=== PATIENT | male | born 1965 | race Caucasian/White ===

== ENCOUNTER 2020-02-23 15:56 | Outpatient (REF) | payer OTHER, SELFPAY ==
[2020-02-23 17:07] LABS: MANUAL DIFF FLAG NO
[2020-02-23 17:14] LABS: Basophils Percent Auto 0.3 % (0-2); Eosinophils Absolute Auto 0.1 X10*3/uL (0.0-0.4); Eosinophils Percent Auto 0.7 % (0-4); Hemoglobin 16.6 g/dl (14.0-18.0); Imm Gran Abs Auto 0.03 X10*3/uL (0.00-0.03); Imm Gran Pct Auto 0.3 % (0.0-0.4); Lymphocytes Absolute Auto 2.8 X10*3/uL (1.2-4.9); Lymphocytes Percent Auto 32.9 % (20-40); Mean Corpuscular HGB Conc 34.6 g/dl (31.0-36.0); Mean Corpuscular Hemoglobin 31.8 pg (27.0-33.0); Mean Platelet Volume 10.1 fL (9.4-12.4); Monocytes Absolute Auto 0.6 X10*3/uL (0.1-1.2); Monocytes Percent Auto 6.6 % (2-11); Neutrophils Absolute Auto 5.1 X10*3/uL (2.0-8.3); Neutrophils Percent Auto 59.2 % (45-73); Platelet Count 274 X10*3/uL (160-400); Red Blood Count 5.22 X10*6/uL (4.60-5.80); Red Cell Distribution Width 12.1 % (11.0-16.0); White Blood Count 8.6 X10*3/uL (4.8-10.8)
[2020-02-23 17:38] LABS: C Reactive Protein 0.11 mg/dL (< or = 0.50)
[2020-02-23 18:20] LABS: Erythrocyte Sedimentation Rate 1 MM/HR (0-15)
== END 2020-02-23 15:57 | disposition home or self-care (01) ==
LOC: HO.LAB 15:56
PROVIDERS: Visit Provider Internal Medicine Infectious Disease
DX: T84.51XA Infection and inflammatory reaction due to internal right hip prosthesis, initial encounter (principal)
CPT/HCPCS: 36415; 85025; 85652; 86140

== ENCOUNTER 2021-04-30 12:21 | Outpatient (REF) | payer OTHER, SELFPAY ==
[2021-04-30 12:59] LABS: MANUAL DIFF FLAG NO
[2021-04-30 13:16] LABS: Basophils Percent Auto 0.3 % (0-2); Eosinophils Absolute Auto 0.1 X10*3/uL (0.0-0.4); Eosinophils Percent Auto 0.8 % (0-4); Hematocrit 47.2 % (42.0-52.0); Hemoglobin 16.3 g/dl (14.0-18.0); Imm Gran Abs Auto 0.02 X10*3/uL (0.00-0.03); Imm Gran Pct Auto 0.2 % (0.0-0.4); Lymphocytes Absolute Auto 4.7 X10*3/uL (1.2-4.9); Lymphocytes Percent Auto 53.8 % (20-40); Mean Corpuscular HGB Conc 34.5 g/dl (31.0-36.0); Mean Corpuscular Hemoglobin 32.1 pg (27.0-33.0); Mean Corpuscular Volume 93.1 fL (80.0-98.0); Mean Platelet Volume 9.8 fL (9.4-12.4); Monocytes Absolute Auto 0.5 X10*3/uL (0.1-1.2); Monocytes Percent Auto 5.2 % (2-11); Neutrophils Absolute Auto 3.4 x10*3/uL (2.0-8.3); Neutrophils Percent Auto 39.7 % (45-73); Platelet Count 220 X10*3/uL (160-400); Red Blood Count 5.07 X10*6/uL (4.60-5.80); Red Cell Distribution Width 12.6 % (11.0-16.0); White Blood Count 8.7 X10*3/uL (4.8-10.8)
[2021-04-30 13:34] LABS: C Reactive Protein 0.13 mg/dL (< or = 0.50)
[2021-04-30 13:52] LABS: Erythrocyte Sedimentation Rate 3 MM/HR (0-15)
== END 2021-04-30 12:22 | disposition home or self-care (01) ==
LOC: HO.LAB 12:21
PROVIDERS: PCP Nurse Practitioner Family; Visit Provider Internal Medicine Infectious Disease
DX: T84.51XA Infection and inflammatory reaction due to internal right hip prosthesis, initial encounter (principal)
CPT/HCPCS: 36415; 85025; 85652; 86140

== ENCOUNTER 2023-01-23 14:29 | Outpatient (AMB) | payer OTHER, SELFPAY ==
--- NOTE | 2023-01-23 14:35 | MHC.PC.OV ---
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 Care / PE Request Allergies No Known Allergies [No Known Allergies*] Allergy (Unverified 01/23/23 14:39) Medication List - Last Reconciled 01/23/23 by DIAZ Hendrix celecoxib 200 mg PO DAILY cephalexin 500 mg PO BID omeprazole 40 mg PO DAILY 30 days Tobacco use date assessed: 01/23/23 Dental Screening Dental Screen Date: 01/23/23 Did you have a dental visit in the last 12 months?: Yes Did you have a dental problem in the last 6 months where you did not have access to dental care?: No Was dental information given to patient?: Patient has dentist HPI Pipe Fitter Soft Copper re-establish Care / PE Request HPI Details Pt is here for a PE. Will order labs. Colon screen is up to date. Due for PSA, will order. Denies dribbling with urination, weak stream, and frequent nocturia. Pt follows up with ID yearly. Pt's blood pressure is elevated today. Will start losartan-hydrochlorothiazide 50-12.5mg (will have pt take half a tab for the first week and then go to a whole tab). Will have pt monitor his blood pressure at home and drop off readings. Denies chest pain, shortness of breath, headache, dizziness, and blurred vision. [facility] Medical History (Updated 01/23/23 @ 15:08 by DIAZ Hendrix) Left retinal detachment HTN (hypertension) Cervical disc herniation Anosmia Vitamin D deficiency Osteoarthritis Actinic keratitis Surgical History (Updated 01/23/23 @ 14:42 by DIAZ Hendrix) H/O repair of left rotator cuff History of bilateral hip replacements Social History Housing: House Patient Tobacco Use Status: Never used Tobacco e-Cigarette/Vaping Use: Never Used Second Hand Smoke Exposure: No service: No Current occupational status: employed Current occupation: [employer] Current occupational exposures/hazards: Yes Cognitive needs: No Hearing needs: No Vision needs: No Questionnaire PHQ-9 Over the last 2 weeks, how often have you been bothered by any of the following problems? 1. Little interest or pleasure in doing things: not at all 2. Feeling down, depressed, or hopeless: not at all 3. Trouble falling or staying asleep, or sleeping too much: more than half the days 4. Feeling tired or having little energy: several days 5. Poor appetite or overeating: not at all 6. Feeling bad about yourself - or that you are a failure or have let yourself or your family down: not at all 7. Trouble concentrating on things, such as reading the newspaper or watching television: not at all 8. Moving or speaking so slowly that other people could have noticed. Or the opposite - being so fidgety or restless that you have been moving around a lot more than usual: not at all 9. Thoughts that you would be better off or of hurting yourself in some way: not at all Total score: 3 Source: Developed by Drs. Jose F Ji, Liz Baum, Kg Charles and colleagues, with an educational froy from [employer]. Thrive Questionnaire Date Thrive assessed: 01/23/23 I am a: Patient What is your living situation today?: I have a steady place to live Within the past 12 months, did the food you bought not last and you didn't have the money to get more?: Never true Within the past 12 months, did you worry whether your food would run out before you got money to buy more?: Never true Do you have trouble paying for medicines?: No Do you have trouble getting transportation to medical appointments?: No Do you have trouble paying your heating and electricity bill?: No Do you have trouble taking care of your child, family member or friend?: No Do you have trouble with day-to-day activities such as bathing, preparing meals, shopping, managing finances, etc.?: No Are you currently unemployed and looking for a job?: No Are you interested in more education?: No AUDIT C Alcohol Use Questionnaire (AUDIT-C) 1. How often do you have a drink containing alcohol?: 2-4 times a month 2. How many drinks containing alcohol do you have on a typical day when you are drinking?: 5 or 6 3. How often do you have six or more drinks on one occasion?: Weekly Total Score: 7 DEMETRIO-7 AMB Questionnaire DEMETRIO-7 Date DEMETRIO - 7 assessed: 01/23/23 Feeling nervous, anxious, or on edge: 0 = Not at all Not being able to stop or control worryin = Not at all Worrying too much about different things: 1 = Several days Trouble relaxin = Several days Being so restless that it is hard to sit still: 1 = Several days Becoming easily annoyed or irritable: 0 = Not at all Feeling afraid as if something awful might happen: 0 = Not at all Total DEMETRIO-7 score (0-4 normal; 5-9 mild; 10-14 moderate; 15-21 severe): 3 Source: Developed by Drs. Jose F Ji, Liz Baum, Kg Charles and colleagues, with an educational froy from [employer]. Review of Systems Const Denies chills and Denies fever(s) Eyes Denies blurry vision ENT Denies vertigo, Denies dizziness and Denies sore throat Card Denies chest pain at rest, Denies chest pain with activity, Denies diaphoresis, Denies dyspnea and Denies dyspnea on exertion Resp Denies cough, Denies dyspnea, Denies dyspnea on exertion and Denies wheezing GI Denies abdominal pain, Denies melena, Denies hematochezia, Denies constipation, Denies diarrhea and Denies loose stools Denies hematuria Musc Denies numbness and Denies tingling Skin/Breast Denies lesions Neuro Denies vertigo, Denies dizziness, Denies numbness and Denies tingling Psych Denies anxiety, Denies depression, Denies homicidal ideation, Denies suicidal ideation and Denies other (substance abuse) Aller/Immun Denies wheezing Physical exam (Primary Care) Vital Signs: Last Vital Signs Pulse 75 01/23/23 14:37 BP 180/100 H 01/23/23 14:37 Pulse Ox 98 01/23/23 14:37 Oxygen Delivery Method Room Air 01/23/23 14:37 BMI result Body Mass Index 26.8 Tobacco/Smoking Status: Tobacco use Status Tobacco use date assessed 01/23/23 01/23/23 14:44 Patient Tobacco Use Status Never used Tobacco 01/23/23 14:44 e-Cigarette/Vaping Use Never Used 01/23/23 14:44 Const General: cooperative Nutritional Appearance: well nourished Orientation/consciousness: patient oriented x3 HENMT Head: Yes normal to inspection, Yes normocephalic and Yes atraumatic Ears: TM's normal bilaterally Eyes General: appearance normal, both eyes and all related structures Alignment and Position: alignment normal and position normal Neck Neck: Yes normal visual inspection and Yes no lymphadenopathy Thyroid: Thyroid normal Resp Effort & Inspection: normal respiratory effort Auscultation: clear to auscultation bilaterally Cardio Rate: regular rate Rhythm: regular rhythm Heart sounds: S1 normal heart sound present, S2 normal heart sound present and no murmurs GI Palpation (GI): Soft to palpation and nontender Auscultation: normal bowel sounds Male General Exam: Yes normal external exam Penis: normal penis Scrotum: scrotum normal, testes descended bilaterally and no inguinal hernias Testes: no testicular mass Skin Rashes: no rashes Neuro General: patient oriented x3, moves all extremities, no focal motor deficits and deep tendon reflexes 2+ bilaterally Romberg Test: Negative Psych Appearance: grossly normal Mental Status: mental status grossly normal Speech and movement: Normal speech and movement present Affect: normal affect Attitude: cooperative Thought process: Normal thought process present Thought content: Normal thought content present Insight: Good insight present (Psych) Judgement: Good judgement present (Psych) Assessment and Plan Assessment & Plan (1) Physical exam: Code(s): Z00.00 - Encounter for general adult medical examination without abnormal findings Plan: Labs ordered (2) Screening for prostate cancer: Code(s): Z12.5 - Encounter for screening for malignant neoplasm of prostate Plan: PSA ordered Plan The patient agreed to the use of a medical apparatus model maker for this encounter. Scribed for DIAZ Self by Cyn Rebolledo medical apparatus model maker, on 01/23/2023 at 14:50 EST Orders: Orders Complete Blood Count Auto Diff Today Z00.00 - Encounter for general adult medical examination without abnormal findings Comprehensive [place]. Panel Fast Today Z00.00 - Encounter for general adult medical examination without abnormal findings TSH reflex Free T4 Today Z00.00 - Encounter for general adult medical examination without abnormal findings UA CC w/rflx Micro + Cult Today Z00.00 - Encounter for general adult medical examination without abnormal findings Lipid Panel Today Z00.00 - Encounter for general adult medical examination without abnormal findings Prostate Specific Antigen Scr Today Z00.00 - Encounter for general adult medical examination without abnormal findings, Z12.5 - Encounter for screening for malignant neoplasm of prostate Medications: New losartan-hydrochlorothiazide 50-12.5 mg 1 tab PO DAILY 90 tabs 0RF Coding Level of Care Code New Pt Prev Care 40-64y(25308) Diagnoses Physical exam Z00.00 Screening for prostate cancer Z12.5
[2023-01-23 14:37] VITALS: BP 180/100; PULSE 75; O2SAT 98; BMI 26.8
== END 2023-01-23 15:55 | disposition home or self-care (01) ==
PROVIDERS: PCP Nurse Practitioner Family; Visit Provider Nurse Practitioner Family
DX: Z00.00 Encounter for general adult medical examination without abnormal findings (principal); Z12.5 Encounter for screening for malignant neoplasm of prostate
CPT/HCPCS: 99386

== ENCOUNTER 2023-02-28 12:51 | Outpatient (REF) | payer OTHER, SELFPAY ==
[2023-02-28 16:19] LABS: Hematocrit 48.8 % (42.0-52.0); Hemoglobin 16.3 g/dl (14.0-18.0); Mean Corpuscular HGB Conc 33.4 g/dl (31.0-36.0); Mean Corpuscular Volume 95.7 fL (80.0-98.0); Mean Platelet Volume 10.4 fL (9.4-12.4); Platelet Count 227 X10*3/uL (160-400); Red Cell Distribution Width 12.1 % (11.0-16.0); White Blood Count 13.7 X10*3/uL (4.8-10.8)
[2023-02-28 16:34] LABS: Alanine Aminotransferase 32 U/L (0-40); Albumin Level 4.7 g/dL (3.5-5.0); Alkaline Phosphatase 63 U/L (39-117); Anion Gap 13 (12-20); Aspartate Amino Transferase 27 U/L (5-37); Bilirubin Total 0.8 mg/dL (0.0-1.0); Blood Urea Nitrogen 18 mg/dL (9-16); Calcium 9.6 mg/dL (8.4-10.2); Carbon Dioxide 31 mmol/L (22-29); Chloride 104 mmol/L (96-108); Cholesterol 208 mg/dL (<200); Estimated Glomerular Filt Rate > 60; Glucose Fasting 98 mg/dL (60-99); HDL Cholesterol 58 mg/dL (>40); LDL Cholesterol Calculated 134 mg/dL (<100); Potassium 4.7 mmol/L (3.3-5.1); Sodium 143 mmol/L (135-145); Total Protein 7.3 g/dL (6.5-8.0); Triglycerides 80 mg/dL (<150)
[2023-02-28 16:47] LABS: Prostate Specific Antigen Scr 1.02 ng/mL (<0.05-4.0)
[2023-02-28 16:49] LABS: Atypical Lymph Absolute Manual 0.1 x10*3/uL; Atypical Lymphs Percent Manual 1 % (0-6); Lymphocytes Absolute Manual 4.5 X10*3/uL (1.2-4.9); Lymphocytes Percent Manual 33 % (20-40); Monocytes Absolute Manual 0.7 X10*3/uL (0.1-1.2); Monocytes Percent Manual 5 % (2-11); Neutrophils Percent Manual 61 % (45-73); Platelet Estimate NORMAL (NORMAL); Platelet Morphology Comment NORMAL; RBC Morphology NOTED; Smudge Cells PRESENT
[2023-02-28 16:50] LABS: Neutrophils Absolute Manual 8.4 X10*3/uL (2.0-8.3)
[2023-02-28 16:53] LABS: TSH reflex Free T4 0.79 uIU/mL (0.32-4.0)
== END 2023-02-28 12:52 | disposition home or self-care (01) ==
LOC: HO.HMGCLDS 12:51
PROVIDERS: PCP Nurse Practitioner Family; Visit Provider Nurse Practitioner Family
DX: Z00.00 Encounter for general adult medical examination without abnormal findings (principal); Z12.5 Encounter for screening for malignant neoplasm of prostate; D72.829 Elevated white blood cell count, unspecified; Z13.29 Encounter for screening for other suspected endocrine disorder; Z13.220 Encounter for screening for lipoid disorders
CPT/HCPCS: 36415; 80053; 80061; 84153; 84443; 85007; 85027

== ENCOUNTER 2023-03-04 10:50 | Outpatient (REF) | payer OTHER, SELFPAY ==
[2023-03-04 16:00] LABS: Appearance Urine Clear; Color Urine Yellow; Glucose Urine UA Negative (Negative); Leukocyte Esterase Urine Negative (Negative); Nitrite Urine Negative (Negative); Specific Gravity - Urine 1.015 (1.005-1.025); Urine Blood Negative (Negative); Urine Ketones Negative (Negative); Urine Protein Negative (Neg-Trace)
== END 2023-03-04 10:51 | disposition home or self-care (01) ==
LOC: HO.HMGCLNP 10:50
PROVIDERS: PCP Nurse Practitioner Family; Visit Provider Nurse Practitioner Family
DX: Z00.00 Encounter for general adult medical examination without abnormal findings (principal)
CPT/HCPCS: 81003

== ENCOUNTER 2023-03-20 12:44 | Outpatient (REF) | payer OTHER, SELFPAY ==
[2023-03-20 16:23] LABS: Basophils Percent Auto 0.3 % (0-2); Eosinophils Absolute Auto 0.1 X10*3/uL (0.0-0.4); Eosinophils Percent Auto 0.3 % (0-4); Hematocrit 46.3 % (42.0-52.0); Hemoglobin 15.9 g/dl (14.0-18.0); Imm Gran Abs Auto 0.03 X10*3/uL (0.00-0.03); Imm Gran Pct Auto 0.2 % (0.0-0.4); Lymphocytes Percent Auto 74.7 % (20-40); MANUAL DIFF FLAG SCAN; Mean Corpuscular HGB Conc 34.3 g/dl (31.0-36.0); Mean Corpuscular Hemoglobin 32.1 pg (27.0-33.0); Mean Corpuscular Volume 93.3 fL (80.0-98.0); Mean Platelet Volume 10.1 fL (9.4-12.4); Monocytes Absolute Auto 0.5 X10*3/uL (0.1-1.2); Monocytes Percent Auto 2.9 % (2-11); Neutrophils Absolute Auto 3.4 x10*3/uL (2.0-8.3); Neutrophils Percent Auto 21.6 % (45-73); Platelet Count 235 X10*3/uL (160-400); Red Blood Count 4.96 X10*6/uL (4.60-5.80); Red Cell Distribution Width 12.3 % (11.0-16.0); SCAN SMEAR FLAG 1; White Blood Count 15.7 X10*3/uL (4.8-10.8)
[2023-03-20 16:26] LABS: Lymphocytes Absolute Auto 11.7 X10*3/uL (1.2-4.9)
[2023-03-20 17:08] LABS: SLIDE REVIEW VERIFIED
== END 2023-03-20 12:45 | disposition home or self-care (01) ==
LOC: HO.HMGCLDS 12:44
PROVIDERS: PCP Nurse Practitioner Family; Visit Provider Nurse Practitioner Family
DX: Z00.00 Encounter for general adult medical examination without abnormal findings (principal)
CPT/HCPCS: 36415; 85025

== ENCOUNTER → 2023-03-24 15:09 | Outpatient (BNVA) | payer OTHER, SELFPAY | PROVIDERS: PCP Nurse Practitioner Family; Visit Provider Physician Assistant Medical | DX: S43.401A Unspecified sprain of right shoulder joint, initial encounter (principal); X50.0XXA Overexertion from strenuous movement or load, initial encounter | CPT/HCPCS: 99203 ==

== ENCOUNTER → 2023-03-26 14:27 | Outpatient (BNV) | payer OTHER, SELFPAY | PROVIDERS: Visit Provider Internal Medicine | DX: D72.829 Elevated white blood cell count, unspecified (principal) | CPT/HCPCS: 99204; 99213; 99214 ==

== ENCOUNTER 2023-04-15 19:40 | Outpatient (REF) | payer OTHER, SELFPAY | END 2023-04-15 19:41 | disposition home or self-care (01) | LOC: HO.MRI 19:40 | PROVIDERS: Visit Provider Internal Medicine | DX: M25.511 Pain in right shoulder (principal) | CPT/HCPCS: 73221 ==

== ENCOUNTER → 2023-04-18 10:03 | Outpatient (BNVA) | payer OTHER, SELFPAY | PROVIDERS: PCP Nurse Practitioner Family; Visit Provider Physician Assistant Medical | DX: M24.011 Loose body in right shoulder (principal) | CPT/HCPCS: 99214 ==

== ENCOUNTER 2023-07-02 15:34 | Outpatient (AMB) | payer OTHER, SELFPAY ==
[2023-07-02 15:36] VITALS: BP 150/92; PULSE 72; O2SAT 98; BMI 28.2
--- NOTE | 2023-07-02 15:36 | A.OFFPC_ITS ---
Vital Signs 07/02/23 15:36 Height 6 ft 1 in Weight 214 lb BMI 28.2 BP 150/92 H Blood Pressure Location Lt brachial Position Sitting Pulse 72 Pulse Source Pulse Oximeter Pulse Oximetry (%) 98 Oxygen Delivery Method Room Air Intake Visit Reasons: follow up Intake Note: pt is here for follow up, htn Allergies No Known Allergies [No Known Allergies*] Allergy (Verified 07/02/23 17:23) Medication List - Last Reconciled 07/02/23 by Mahesh Ann [facility] amlodipine 2.5 mg PO DAILY 90 days celecoxib 200 mg PO DAILY losartan-hydrochlorothiazide 50-12.5 mg 1 tab PO DAILY omeprazole 40 mg PO DAILY 30 days Tobacco use date assessed: 07/02/23 Dental Screening Dental Screen Date: 07/02/23 Did you have a dental visit in the last 12 months?: Yes Did you have a dental problem in the last 6 months where you did not have access to dental care?: No Was dental information given to patient?: Patient has dentist HPI follow up HPI Details HTN: Blood pressure is managed with losartan-hydrochlorothiazide 50- 12.5mg. Blood pressure is elevated today. Pt used to monitor his BP at home and reports that it fluctuates. Will add amlodipine 2.5mg. Denies chest pain, shortness of breath, headache, dizziness, and blurred vision. Pt is seeing hematology/oncology due to chronic lymphocytic leukemia. Pt reports doing well. [facility] Medical History (Updated 07/02/23 @ 16:04 by KRANTHI HendrixGERRI) CLL (chronic lymphocytic leukemia) Left retinal detachment HTN (hypertension) Cervical disc herniation Anosmia Vitamin D deficiency Osteoarthritis Actinic keratitis Surgical History Status post lumbar microdiscectomy H/O repair of left rotator cuff History of bilateral hip replacements Family History Father Bladder cancer Mother Lung cancer Sister Melanoma Social History Household Members: Spouse and Children Housing: House Patient Tobacco Use Status: Never used Tobacco e-Cigarette/Vaping Use: Never Used Second Hand Smoke Exposure: No Current occupational status: employed Current occupation: [employer] Current occupational exposures/hazards: Yes Cognitive needs: No Hearing needs: No Vision needs: No Questionnaire Thrive Questionnaire Date Thrive assessed: 01/23/23 DEMETRIO-7 AMB Questionnaire DEMETRIO-7 Date DEMETRIO - 7 assessed: 01/23/23 Source: Developed by Drs. Jose F Ji, Liz Baum, Kg Charles and colleagues, with an educational froy from [employer]. Review of Systems Const Reports as per HPI Physical exam (Primary Care) Vital Signs: Last Vital Signs Pulse 72 07/02/23 15:36 BP 150/92 H 07/02/23 15:36 Pulse Ox 98 07/02/23 15:36 Oxygen Delivery Method Room Air 07/02/23 15:36 BMI result Body Mass Index 28.2 Tobacco/Smoking Status: Tobacco use Status Tobacco use date assessed 07/02/23 07/02/23 15:38 Patient Tobacco Use Status Never used Tobacco 07/02/23 15:38 e-Cigarette/Vaping Use Never Used 07/02/23 15:38 Thrive Assessment: Date of Thrive Assessment Date Thrive assessed 01/23/23 07/02/23 15:38 Const General: cooperative Orientation/consciousness: patient oriented x3 Resp Effort & Inspection: normal respiratory effort Auscultation: clear to auscultation bilaterally Cardio Rate: regular rate Rhythm: regular rhythm Heart sounds: S1 normal heart sound present and S2 normal heart sound present Neuro General: patient oriented x3 Extrem Right lower extremity: no edema Left lower extremity: no edema Psych Appearance: grossly normal Mental Status: mental status grossly normal Speech and movement: Normal speech and movement present Affect: normal affect Attitude: cooperative Thought process: Normal thought process present Thought content: Normal thought content present Insight: Good insight present (Psych) Judgement: Good judgement present (Psych) Assessment and Plan Assessment & Plan (1) HTN (hypertension): Code(s): I10 - Essential (primary) hypertension Plan: added amlodipine, labs ordered Plan The patient agreed to the use of a medical center manager for this encounter. Scribed for DIAZ Self by Cyn Rebolledo medical center manager, on 07/02/2023 at 15:50 EST. Orders: Orders Complete Blood Count Auto Diff Today I10 - Essential (primary) hypertension Lipid Panel Today I10 - Essential (primary) hypertension UA CC w/rflx Micro + Cult Today I10 - Essential (primary) hypertension Comprehensive [place]. Panel Fast Today I10 - Essential (primary) hypertension TSH reflex Free T4 Today I10 - Essential (primary) hypertension Medications: New amlodipine 2.5 mg PO DAILY 90 tabs 0RF 90 days Coding Level of Care Code Est Pt Level 3 (54363) Diagnoses HTN (hypertension) I10
== END 2023-07-02 16:35 | disposition home or self-care (01) ==
PROVIDERS: PCP Nurse Practitioner Family; Visit Provider Nurse Practitioner Family
DX: I10 Essential (primary) hypertension (principal)
CPT/HCPCS: 99213

== ENCOUNTER 2023-08-12 14:34 | Outpatient (REF) | payer OTHER, SELFPAY ==
[2023-08-12 14:57] LABS: MANUAL DIFF FLAG NO
[2023-08-12 15:47] LABS: Basophils Percent Auto 0.4 % (0-2); Eosinophils Percent Auto 0.4 % (0-4); Hematocrit 44.8 % (42.0-52.0); Hemoglobin 15.6 g/dl (14.0-18.0); Imm Gran Abs Auto 0.03 X10*3/uL (0.00-0.03); Imm Gran Pct Auto 0.3 % (0.0-0.4); Lymphocytes Absolute Auto 4.2 X10*3/uL (1.2-4.9); Mean Corpuscular HGB Conc 34.8 g/dl (31.0-36.0); Mean Corpuscular Hemoglobin 32.7 pg (27.0-33.0); Mean Corpuscular Volume 93.9 fL (80.0-98.0); Mean Platelet Volume 9.8 fL (9.4-12.4); Monocytes Absolute Auto 0.6 X10*3/uL (0.1-1.2); Monocytes Percent Auto 5.5 % (2-11); Neutrophils Absolute Auto 5.3 x10*3/uL (2.0-8.3); Neutrophils Percent Auto 52.4 % (45-73); Platelet Count 251 X10*3/uL (160-400); Red Blood Count 4.77 X10*6/uL (4.60-5.80); Red Cell Distribution Width 12.4 % (11.0-16.0); White Blood Count 10.2 X10*3/uL (4.8-10.8)
[2023-08-12 15:48] LABS: Basophils Percent Auto 0.3 % (0-2); Eosinophils Absolute Auto 0.1 X10*3/uL (0.0-0.4); Eosinophils Percent Auto 0.5 % (0-4); Hemoglobin 15.7 g/dl (14.0-18.0); Imm Gran Abs Auto 0.04 X10*3/uL (0.00-0.03); Imm Gran Pct Auto 0.4 % (0.0-0.4); Lymphocytes Absolute Auto 4.1 X10*3/uL (1.2-4.9); Lymphocytes Percent Auto 40.4 % (20-40); Mean Corpuscular HGB Conc 34.9 g/dl (31.0-36.0); Mean Corpuscular Hemoglobin 32.8 pg (27.0-33.0); Mean Corpuscular Volume 94.1 fL (80.0-98.0); Mean Platelet Volume 9.9 fL (9.4-12.4); Monocytes Absolute Auto 0.5 X10*3/uL (0.1-1.2); Monocytes Percent Auto 5.3 % (2-11); Neutrophils Absolute Auto 5.4 x10*3/uL (2.0-8.3); Neutrophils Percent Auto 53.1 % (45-73); Platelet Count 248 X10*3/uL (160-400); Red Blood Count 4.78 X10*6/uL (4.60-5.80); Red Cell Distribution Width 12.5 % (11.0-16.0); White Blood Count 10.1 X10*3/uL (4.8-10.8)
[2023-08-12 16:22] LABS: C Reactive Protein < 0.10 mg/dL (< or = 0.50)
[2023-08-12 16:32] LABS: Alanine Aminotransferase 32 U/L (0-40); Albumin Level 4.6 g/dL (3.5-5.0); Alkaline Phosphatase 70 U/L (39-117); Anion Gap 15 (12-20); Aspartate Amino Transferase 28 U/L (5-37); Bilirubin Total 0.7 mg/dL (0.0-1.0); Blood Urea Nitrogen 16 mg/dL (9-16); Calcium 9.4 mg/dL (8.4-10.2); Carbon Dioxide 27 mmol/L (22-29); Chloride 102 mmol/L (96-108); Cholesterol 217 mg/dL (<200); Erythrocyte Sedimentation Rate 2 MM/HR (0-15); Estimated Glomerular Filt Rate > 60; Glucose Fasting 91 mg/dL (60-99); HDL Cholesterol 55 mg/dL (>40); LDL Cholesterol Calculated 119 mg/dL (<100); Potassium 3.9 mmol/L (3.3-5.1); Sodium 140 mmol/L (135-145); Total Protein 7.2 g/dL (6.5-8.0); Triglycerides 215 mg/dL (<150)
[2023-08-12 17:01] LABS: TSH reflex Free T4 0.89 uIU/mL (0.32-4.0)
[2023-08-12 18:08] LABS: Appearance Urine Clear; Color Urine Yellow; Glucose Urine UA Negative (Negative); Leukocyte Esterase Urine Negative (Negative); Nitrite Urine Negative (Negative); Specific Gravity - Urine 1.015 (1.005-1.025); Urine Blood Negative (Negative); Urine Ketones Negative (Negative); Urine Protein Negative (Neg-Trace)
== END 2023-08-12 14:35 | disposition home or self-care (01) ==
LOC: HO.LAB 14:34
PROVIDERS: PCP Nurse Practitioner Family; Visit Provider Internal Medicine Infectious Disease
DX: I10 Essential (primary) hypertension (principal)
CPT/HCPCS: 36415; 80053; 80061; 81003; 84443; 85025; 85652; 86140

== ENCOUNTER → 2024-03-05 10:54 | Outpatient (BNVA) | payer OTHER, SELFPAY | PROVIDERS: PCP Nurse Practitioner Family; Visit Provider Internal Medicine | DX: M75.101 Unspecified rotator cuff tear or rupture of right shoulder, not specified as traumatic (principal); M19.011 Primary osteoarthritis, right shoulder | CPT/HCPCS: 99213 ==

== ENCOUNTER → 2024-03-26 11:08 | Outpatient (BNVA) | payer OTHER, SELFPAY | PROVIDERS: PCP Nurse Practitioner Family; Visit Provider Internal Medicine | DX: M75.101 Unspecified rotator cuff tear or rupture of right shoulder, not specified as traumatic (principal); M19.011 Primary osteoarthritis, right shoulder | CPT/HCPCS: 99213 ==

== ENCOUNTER 2024-04-13 09:02 | Outpatient (RCR) | payer OTHER, SELFPAY ==
--- NOTE | 2024-03-25 10:17 | MHC.PT.EP ---
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 He reports he injured his right shoulder at work last March. He presents to PT with current impairments in pain, decreased right shoulder ROM, decreased strength, soft tissue restrictions and impaired posture. He is limited functionally by reaching behind back, lifting, and sleeping on right side. He is a good candidate for skilled PT in order to address current impairments to facilitate return to PLOF. He is recommended to be seen 2x/week for 4 weeks and will be reassessed at that time Frequency and Duration: The patient will be seen 2x/week for 4 weeks Short Term Goals: Pt will be I with HEP to promote self management of symptoms Pt will improve R shoulder flexion ROM by at least 10 degrees Exhibit Preparator Goals: Pt will achieve full ROM of right shoulder to assist with lifting and reaching behind back Pt will improve full strength of right shoulder to assist with lifting and reaching Pt will demonstrate improvements in function as evidenced by statistically significant improvement in SPADI outcome measure Treatment Plan: Modalities to reduce pain, spasms and effusion. Manual therapy to restore motion and function. Therapeutic exercise to improve strength and flexibility. Neuromuscular re-education for posture and balance. Therapeutic activities to return to functional activities of daily living. Electronically signed by: Courtney Cordova, PT, DPT Please sign and return to therapist. Thank you for your referral.
--- NOTE | 2024-06-17 14:34 | MHC.PT.DC ---
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 He attended initial PT evaluation and 1 treatment session. He cancelled the remainder of his appointments. He is being D/C from skilled PT as he has not attended or called to reschedule in > 30 days. Pt current level of function unknown Electronically signed by: Courtney Cordova, PT, DPT Please sign and return to therapist. Thank you for your referral.
== END 2024-06-17 14:34 | disposition home or self-care (01) ==
LOC: HO.PT 09:02
PROVIDERS: PCP Nurse Practitioner Family; Visit Provider Internal Medicine
DX: M19.011 Primary osteoarthritis, right shoulder (principal)
CPT/HCPCS: 97110; 97162

== ENCOUNTER → 2024-04-21 10:32 | Outpatient (BNVA) | payer OTHER, SELFPAY | PROVIDERS: PCP Nurse Practitioner Family; Visit Provider Internal Medicine | DX: R50.9 Fever, unspecified (principal); M24.811 Other specific joint derangements of right shoulder, not elsewhere classified | CPT/HCPCS: 99213 ==

== ENCOUNTER 2024-06-30 13:45 | Outpatient (REF) | payer OTHER, SELFPAY ==
--- NOTE | ~2024-06-30 | XR_ITS ---
EXAMINATION: XR CHEST 2 VIEWS HISTORY: Z01.818 - Encounter for other preprocedural examination COMPARISON: Comparison is made with the prior examination dated 04/18/2010. FINDINGS: PA and lateral views of the chest are submitted. The lungs are expanded and clear. There is no pleural effusion, pneumothorax, or pulmonary vascular congestion. The heart is normal in size. There is degenerative disc disease of the spine. There is osteoarthritis of the left shoulder. XR/XR chest 2V IMPRESSION: No acute cardiopulmonary abnormality. Electronically signed by: Jose F Palafox MD 07/01/2024 08:25 AM EDT
[2024-06-30 16:31] LABS: Estimated Average Glucose 108 mg/dL; Hemoglobin A1C 149.3038 umol/L; Hemoglobin A1c % 5.4 % (<6.0)
[2024-06-30 16:33] LABS: INTERNATIONAL NORM RATIO 0.9 (0.9-1.1); Prothrombin Time 10.7 SEC (10.9-12.4)
[2024-06-30 16:35] LABS: Basophils Absolute Auto 0.1 X10*3/uL (0.0-0.2); Basophils Percent Auto 0.4 % (0-2); Eosinophils Absolute Auto 0.1 X10*3/uL (0.0-0.4); Eosinophils Percent Auto 0.4 % (0-4); Hematocrit 48.4 % (42.0-52.0); Hemoglobin 16.6 g/dl (14.0-18.0); Imm Gran Abs Auto 0.03 X10*3/uL (0.00-0.03); Imm Gran Pct Auto 0.2 % (0.0-0.4); Lymphocytes Percent Auto 64.3 % (20-40); MANUAL DIFF FLAG SCAN; Mean Corpuscular HGB Conc 34.3 g/dl (31.0-36.0); Mean Corpuscular Hemoglobin 31.9 pg (27.0-33.0); Mean Corpuscular Volume 93.1 fL (80.0-98.0); Mean Platelet Volume 9.9 fL (9.4-12.4); Monocytes Absolute Auto 0.5 X10*3/uL (0.1-1.2); Monocytes Percent Auto 3.8 % (2-11); NRBC Pct Auto 0.2 /100WBC (0.0-0.2); Neutrophils Absolute Auto 3.8 x10*3/uL (2.0-8.3); Neutrophils Percent Auto 30.9 % (45-73); Platelet Count 235 X10*3/uL (160-400); Red Cell Distribution Width 12.9 % (11.0-16.0); SCAN SMEAR FLAG 1; White Blood Count 12.4 X10*3/uL (4.8-10.8)
[2024-06-30 16:36] LABS: Partial Thromboplastin Time 30.7 SEC (26.0-36.8)
[2024-06-30 17:39] LABS: Alanine Aminotransferase 42 U/L (0-40); Albumin Level 4.7 g/dL (3.5-5.0); Alkaline Phosphatase 61 U/L (39-117); Anion Gap 12 (12-20); Aspartate Amino Transferase 36 U/L (5-37); Bilirubin Total 1.2 mg/dL (0.0-1.0); Blood Urea Nitrogen 14 mg/dL (9-16); Calcium 9.8 mg/dL (8.4-10.2); Carbon Dioxide 29 mmol/L (22-29); Chloride 105 mmol/L (96-108); Cholesterol 208 mg/dL (<200); Estimated Glomerular Filt Rate > 60; Glucose Random 119 mg/dL (60-115); HDL Cholesterol 59 mg/dL (>40); LDL Cholesterol Calculated 133 mg/dL (<100); Potassium 4.4 mmol/L (3.3-5.1); Sodium 142 mmol/L (135-145); Total Protein 7.5 g/dL (6.5-8.0); Triglycerides 80 mg/dL (<150)
[2024-06-30 17:41] LABS: TSH reflex Free T4 0.91 uIU/mL (0.32-4.0)
[2024-06-30 17:44] LABS: SLIDE REVIEW VERIFIED
== END 2024-06-30 13:46 | disposition home or self-care (01) ==
LOC: HO.HMGCX 13:45
PROVIDERS: PCP Nurse Practitioner Family; Visit Provider Nurse Practitioner Family
DX: Z01.818 Encounter for other preprocedural examination (principal); R05.9 Cough, unspecified; E78.5 Hyperlipidemia, unspecified; Z13.1 Encounter for screening for diabetes mellitus
CPT/HCPCS: 36415; 71046; 80053; 80061; 83036; 84443; 85025; 85610; 85730; 96127

== ENCOUNTER 2024-06-30 13:45 | Outpatient (AMB) | payer OTHER, SELFPAY ==
--- NOTE | 2024-06-30 13:46 | MHC.PC.OV ---
Vital Signs 06/30/24 13:47 Height 6 ft 1 in Weight 214 lb BMI 28.2 BP 132/84 Blood Pressure Location Lt brachial Position Sitting Pulse 86 Pulse Source Pulse Oximeter Temp 98.5 F Temp Source Oral Pulse Oximetry (%) 98 Intake Visit Reasons: Preop - Right Shoulder Surg. EKG/CBC/CMP/A1C Tattoo Designer Required: No Accompanied by: Self / Same As Patient Allergies No Known Allergies [No Known Allergies*] Allergy (Verified 06/30/24 14:42) Medication List - Last Reconciled 06/30/24 by Mahesh Ann, [facility]- amlodipine 2.5 mg PO DAILY 90 days celecoxib 200 mg PO DAILY cephalexin mg PO losartan-hydrochlorothiazide 50-12.5 mg 1 tab PO DAILY omeprazole 40 mg PO DAILY 30 days Tobacco use date assessed: 06/30/24 Dental Screening Dental Screen Date: 06/30/24 Did you have a dental visit in the last 12 months?: Yes Did you have a dental problem in the last 6 months where you did not have access to dental care?: No Was dental information given to patient?: Patient has dentist HPI Preop - Right Shoulder Surg. EKG/CBC/CMP/A1C HPI Details Chief Complaint Preoperative evaluation for pending right shoulder surgery History of Present Illness The patient is a 59-year-old male presenting with a request for a preoperative evaluation ahead of his scheduled right shoulder debridement at the end of July. Notably, approximately three months prior, he experienced a cold from which he has since recovered almost completely, with a 98% resolution of symptoms, although he still experiences a residual cough. He does not report any present fever, chills, or lymphadenopathy. His chronic health condition, Chronic Lymphocytic Leukemia, is stable under ongoing management with an clinical operations specialist. The patient has an upcoming oncologist follow-up by the end of this month to ensure surgical clearance for the planned procedure, as he does not anticipate any contraindications related to his leukemia for the operation. Social History Health Maintenance Review of Systems - Respiratory: Reports residual cough - Constitutional: Denies recent fevers or chills - Lymphatic: Denies lymphadenopathy -denies any fevers, chills, n/v, excessive fatigue Physical Exam General: Cooperative, healthy appearing, comfortable, no acute distress and well developed Orientation: Patient oriented x3 Limitations: No limitations Head: Normal to inspection Ears: Hearing grossly normal bilaterally Nose: Normal external nose present Face and sinus: Normal facial exam Eyes: Appearance normal, both eyes and all related structures Neck: Normal visual inspection and Yes full ROM, no lymphadenopathy noted Respiratory: Normal respiratory effort and able to speak in complete sentences. Clear to auscultation bilaterally, residual cough present Cardiovascular: Regular rate and rhythm. Normal S1 and S2 GI: Normal to inspection. Soft to palpation and nontender Skin: No rashes or lesions noted Neuro: Patient oriented x3 Extremities: Normal to inspection Results Plan The patient is evaluated today for his upcoming right shoulder debridement scheduled at the end of July. He is advised to follow up with his oncologist for surgical clearance due to his Chronic Lymphocytic Leukemia, though no significant contraindications are anticipated. A chest X-ray is to be obtained as a precaution due to the patient?s residual cough. Further actions will depend on the results of the X-ray and his oncologist?s assessment, and labs. EKG done in the office today Discussion Notes I discussed with the patient the necessity of obtaining surgical clearance from his oncologist due to his Chronic Lymphocytic Leukemia, emphasizing that I do not foresee any substantial issues in proceeding with the surgery. We also reviewed the utility of a precautionary chest X-ray to ensure no residual impacts from his recent upper respiratory illness will complicate the perioperative process. The necessary steps following the radiological results and specialist clearance were also addressed, reiterating the importance of follow-up visits as planned. [facility] Medical History Infection of right prosthetic hip joint CLL (chronic lymphocytic leukemia) Left retinal detachment HTN (hypertension) Cervical disc herniation Anosmia Vitamin D deficiency Osteoarthritis Actinic keratitis Surgical History Status post lumbar microdiscectomy H/O repair of left rotator cuff History of bilateral hip replacements Family History Father Bladder cancer Mother Lung cancer Sister Melanoma Social History Household Members: Spouse and Children Housing: House Patient Tobacco Use Status: Never used Tobacco e-Cigarette/Vaping Use: Never Used Second Hand Smoke Exposure: No Current occupational status: employed Current occupation: [employer] Current occupational exposures/hazards: Yes Cognitive needs: No Hearing needs: No Vision needs: No Questionnaire PHQ-9 Over the last 2 weeks, how often have you been bothered by any of the following problems? 1. Little interest or pleasure in doing things: not at all 2. Feeling down, depressed, or hopeless: not at all 3. Trouble falling or staying asleep, or sleeping too much: more than half the days 4. Feeling tired or having little energy: several days 5. Poor appetite or overeating: not at all 6. Feeling bad about yourself - or that you are a failure or have let yourself or your family down: not at all 7. Trouble concentrating on things, such as reading the newspaper or watching television: not at all 8. Moving or speaking so slowly that other people could have noticed. Or the opposite - being so fidgety or restless that you have been moving around a lot more than usual: not at all 9. Thoughts that you would be better off or of hurting yourself in some way: not at all Total score: 3 Depression Screening Interpretation: Negative Depression Screening Done: Yes 48601 - PHQ-9 Billing: Yes Source: Developed by Drs. Jose F Ji, Liz Baum, Kg Charles and colleagues, with an educational froy from [employer]. Thrive Questionnaire Date Thrive assessed: 06/30/24 I am a: Patient What is your living situation today?: I have a steady place to live Within the past 12 months, did the food you bought not last and you didn't have the money to get more?: Never true Within the past 12 months, did you worry whether your food would run out before you got money to buy more?: Never true Do you have trouble paying for medicines?: No Do you have trouble getting transportation to medical appointments?: No Do you have trouble paying your heating and electricity bill?: No Do you have trouble taking care of your child, family member or friend?: No Do you have trouble with day-to-day activities such as bathing, preparing meals, shopping, managing finances, etc.?: No Are you currently unemployed and looking for a job?: No Are you interested in more education?: No Please select the resources that you would like help with: None Currently or been in a relationship where the following occur: No concerns reported THRIVE Score: 0 AUDIT C Alcohol Use Questionnaire (AUDIT-C) 1. How often do you have a drink containing alcohol?: 2-4 times a month 2. How many drinks containing alcohol do you have on a typical day when you are drinking?: 5 or 6 3. How often do you have six or more drinks on one occasion?: Weekly Total Score: 7 Score Reviewed/Action Taken: Yes DEMETRIO-7 AMB Questionnaire DEMETRIO-7 Date DEMETRIO - 7 assessed: 06/30/24 Feeling nervous, anxious, or on edge: 0 = Not at all Not being able to stop or control worryin = Not at all Worrying too much about different things: 1 = Several days Trouble relaxin = Several days Being so restless that it is hard to sit still: 1 = Several days Becoming easily annoyed or irritable: 0 = Not at all Feeling afraid as if something awful might happen: 0 = Not at all Total DEMETRIO-7 score (0-4 normal; 5-9 mild; 10-14 moderate; 15-21 severe): 3 Source: Developed by Drs. Jose F Ji, Liz Baum, Kg Charles and colleagues, with an educational froy from [employer]. DEMETRIO-7 Assessment Billing DEMETRIO-7 Assessment Tool: DEMETRIO-7 Assessment 19506 Physical exam (Primary Care) Vital Signs: Last Vital Signs Temp 98.5 F 06/30/24 13:47 Pulse 86 06/30/24 13:47 BP 132/84 06/30/24 13:47 Pulse Ox 98 06/30/24 13:47 BMI result Body Mass Index 28.2 Tobacco/Smoking Status: Tobacco use Status Tobacco use date assessed 06/30/24 06/30/24 13:48 Patient Tobacco Use Status Never used Tobacco 06/30/24 13:48 e-Cigarette/Vaping Use Never Used 06/30/24 13:48 PHQ-9: PHQ-9 Score PHQ-9: Total score 3 06/30/24 13:48 Depression Screening Interpretation: Negative Thrive Assessment: Date of Thrive Assessment Date Thrive assessed 06/30/24 06/30/24 13:48 Currently or been in a relationship where the following occur: No concerns reported Coding Level of Care Code Est Pt Prev Care 40-64y(53875) Diagnoses Pre-op evaluation Z01.818 Cough R05.9 Additional Codes DEMETRIO-7 Assessment Billing - DEMETRIO-7 Assessment Tool: DEMETRIO-7 Assessment 07287 ([id number]) PHQ-9 - 94715 - PHQ-9 Billing: Yes ([id number]) Assessment & Plan Assessment & Plan (1) Pre-op evaluation: Code(s): Z01.818 - Encounter for other preprocedural examination Category: Medical (2) Cough: Code(s): R05.9 - Cough, unspecified Category: Medical Plan lab orders already in Orders: Orders AMB EKG-In Office Today Z01.818 - Encounter for other preprocedural examination Hemoglobin A1c Today Z01.818 - Encounter for other preprocedural examination XR chest 2V Today R05.9 - Cough, unspecified, Z01.818 - Encounter for other preprocedural examination
[2024-06-30 13:47] VITALS: BP 132/84; PULSE 86; TEMP 36.9; O2SAT 98; BMI 28.2
== END 2024-06-30 14:29 | disposition home or self-care (01) ==
LOC: HO.HMCC 13:46
PROVIDERS: PCP Nurse Practitioner Family; Visit Provider Nurse Practitioner Family
DX: R05.9 Cough, unspecified (principal); Z01.818 Encounter for other preprocedural examination

== ENCOUNTER → 2024-06-30 14:54 | Outpatient (BNV) | payer OTHER, SELFPAY | PROVIDERS: PCP Nurse Practitioner Family; Visit Provider Radiology Diagnostic Radiology | DX: Z01.818 Encounter for other preprocedural examination (principal) | CPT/HCPCS: 71046 ==

== ENCOUNTER 2025-02-07 14:54 | Outpatient (REF) | payer OTHER, SELFPAY ==
[2025-02-07 15:19] LABS: Hematocrit 49.1 % (42.0-52.0); Hemoglobin 17.0 g/dl (14.0-18.0); Imm Gran Abs Auto 0.03 X10*3/uL (0.00-0.03); Imm Gran Pct Auto 0.2 % (0.0-0.4); MANUAL DIFF FLAG SCAN; Mean Corpuscular HGB Conc 34.6 g/dl (31.0-36.0); Mean Corpuscular Hemoglobin 32.3 pg (27.0-33.0); Mean Corpuscular Volume 93.2 fL (80.0-98.0); NRBC Abs Auto 0.000 X10*3/uL (0.0-0.012); NRBC Pct Auto 0.0 /100WBC (0.0-0.2); Platelet Count 213 X10*3/uL (160-400); Red Blood Count 5.27 X10*6/uL (4.60-5.80); SCAN SMEAR FLAG 1; White Blood Count 12.9 X10*3/uL (4.8-10.8)
[2025-02-07 15:23] LABS: Lymphocytes Absolute Auto 8.3 X10*3/uL (1.2-4.9)
--- OUTSIDE RECORDS SUMMARY | 2025-02-07 18:18 | XMS_ITS | Clinical Summary ---
Author Organization [facility] Address [address] [place] [address] Phone Care Team Providers Care Vocational Rehabilitation Consultant Name Role Phone Marissa Julee Shields PHARMACY TECHNICIAN PER DIEM Primary Care Provider Allergies No known active allergies Medications cephalexin (KEFTAB) 500 mg tablet Take 1 Tablet by mouth daily. Active losartan-hydroCH LOROthiazide (HYZAAR) 50-12.5 mg per tablet Take 1 Tablet by mouth daily. Active omeprazole OTC (PriLOSEC OTC) 20 mg EC tablet Take 1 Tablet by mouth. Active amLODIPine (NORVASC) 2.5 mg tablet Take by mouth 1 (one) time each day. Active Active Problems Problem Noted Date Diagnosed Date Shoulder arthritis 04/27/2024 Impingement syndrome of right shoulder Arthritis of right acromioclavicular joint 04/27 Lumbar disc herniation with radiculopathy 2023 Overview (04/29/2024): Last Assessment & Plan: Mr. Gordon is about 7 months status post left L4-5 minimally invasive microdiscectomy. He did well following that surgery until about 6 weeks ago when he had a sneezing fit and put out his back. Within 2 weeks his back was better but he had left leg pain. I gave him a short course of oral steroids and that did stop the crescendo of his pain. It is plateaued since that time. He is taking Celebrex and Tylenol. We talked about the natural course of lumbar radiculopathy. I explained that it was likely that his pain would improve sometime over the next 6 weeks. We talked about acupuncture, chiropractic treatment and physical therapy as reasonable conservative modalities. He was not interested in a prescription for physical therapy at this time. He is not ready to consider surgery but he says that if this persisted he would consider surgery. We decided to give it another month to 6 weeks and he will call if things are not improving so that we can obtain an MRI to evaluate for a new or recurrent disc herniation. Chronic lymphocytic leukemia ([facility] V24, [facility]/ [facility] V28) 05/01/2023 Immunizations Immunization Administration Dates Next Due Influenza trivalent, with pr eservative (Fluzone; Afluria) 6mo and older 06/13/2015 Surgical History Surgery Date Site/Laterality Comments OTHER SURGICAL HISTORY PROCEDURE: TN ARTHRP ACETBLR/PROX FEM PROSTC AGRFT/ALGRFT EYE SURGERY PROCEDURE: HISTORICAL EYE SURGERY HIP ARTHROPLASTY Bilateral CHOLECYSTECTOMY ROTATOR CUFF REPAIR Left HAND SURGERY Right SPINE SURGERY 04/14/2023 - 04/13/2024 LUMBAR Medical History Medical History Date Comments Essential hypertension DX:Essent ial hypertension Anxiety state DX:Anxiety state Depressive disorder DX:Depressiv e disorder S/P lumbar discectomy 05/15/2023 DX:S/P lum bar discectomy; COMMENT: Left L4-5 GERD (gastroesophageal reflu x disease) CLL (chronic lymphocytic nicole kemia) ([facility] V24, [facility] V28) Social History Tobacco Use Types Packs/Day Years Used Date Smoking Tobacco: Never Smokeless Tobacco: Never Alcohol Use Standard Drinks/Week Comments Yes 1 (1 standard drink = 0.6 oz pur e alcohol) Interpersonal Safety Answer Date Record ed Physical Abuse Unrecognized value 08/05/2024 Verbal Abuse Unrecognized value 08/05/2024 Sex and Gender Information Value Date Recorded Sex Assigned at Not on file Legal Sex Male 12:50 AM EST Gender Identity Not on file Sexual Orientation Not on file Obstetrics History Last Filed Vital Signs Vital Sign Reading Time Taken Comments Blood Pressure 142/86 08/05/2024 2:44 PM EDT Pulse 49 08/05/2024 2:44 PM EDT Temperature 36 C (96.8 F) 08/05/2024 2:44 PM EDT Respiratory Rate 18 08/05/2024 2:44 PM EDT Oxygen Saturation 96% 08/05/2024 2:44 PM EDT Inhaled Oxygen Concentration - - Weight 93 kg (205 lb) 08/23/2024 10:41 AM EDT Height 185.4 cm (6' 0.99 ) 08/23/2024 10:41 AM E DT Body Mass Index 27.05 08/23/2024 10:41 AM EDT Plan of Treatment Health Maintenance Due Date Last Done Comments Colorectal Cancer Screening: Colonoscopy 1964 COVID-19 Vaccine (#1) 1969 DTaP,Tdap,and Td Vaccines (1 - Tdap) 1983 Pneumococcal Vaccine: 50+ Ye ars (1 of 2 - PCV) 1983 Zoster Vaccines (1 of 2) 1983 Cholesterol Screening (Lipid Panel) 11/11/2023 HIV Screening 11/11/2023 Hepatitis C Screening 11/11/2023 Social Influencers of Health Screening 11/11/2023 Depression Screening 04/14/2024 Influenza Vaccine (#1) 2024 06/13/2015 RSV Immunization Adult Patie nts (1 - 1-dose 75+ series) 2039 HIB Vaccines Aged Out No longer eligi ble based on patient's age to complete this topic HPV Vaccines Aged Out No longer eligi ble based on patient's age to complete this topic Hepatitis A Vaccines Aged Out No long er eligible based on patient's age to complete this topic Hepatitis B Vaccines Aged Out No long er eligible based on patient's age to complete this topic IPV Vaccines Aged Out No longer eligi ble based on patient's age to complete this topic MMR Vaccines Aged Out No longer eligi ble based on patient's age to complete this topic Meningococcal ACWY Vaccine Aged Out N o longer eligible based on patient's age to complete this topic Meningococcal B Vaccine Aged Out No l onger eligible based on patient's age to complete this topic RSV Immunization Patients Un kyleigh 20 months Aged Out No longer eligible b ased on patient's age to complete this topic Varicella Vaccines Aged Out No longer eligible based on patient's age to complete this topic Medical Devices Implanted Type Area Energy Consultant Device Identifier Shelf Expiration Date Model / Serial / Lot Joints Hip Joints Hip Bilateral : Hip Insurance GENERIC GENERIC Care Teams Vocational Rehabilitation Consultant Relationship Specialty Start Date End Date Julee Ann NP [address] [place], [place] PCP - General 05/05/23
--- OUTSIDE RECORDS SUMMARY | 2025-02-07 18:18 | XMS_ITS | Clinical Summary ---
Author Organization [facility] Address [address] [address] Phone Care Team Providers Care Manager Treasury Name Role Phone Mahesh Ann NP Primary Care Provider + Moiz Harrell MD Unavailable Inés Giron TRANS ROUTER Unavailable + Josie Dennis MD Unavailable Allergies Active Allergy Reactions Criticality Noted Date Comments Pollen Extracts 05/01/2023 Medications acetaminophen (TYLENOL) 500 MG tablet Take 1,000 mg by mouth every 6 (six) hours as needed for pain (specific location in comments). Active celecoxib (CELEBREX) 100 MG capsule Take 200 mg by mouth daily. Active omeprazole (PRILOSEC) 20 MG tablet Take 20 mg by mouth as needed. Active lisinopril-hydr oCHLOROthiazide (PRINZIDE,ZESTO RETIC) 10-12.5 mg per tablet Take 1 tablet by mouth daily. Active VITAMIN D3-VITAMIN K2, MK4, ORAL Take 1 tablet by mouth daily. Active Active Problems Problem Noted Date Diagnosed Date CLL (chronic lymphocytic leukemia) 05/01/2023 Immunizations Immunization Administration Dates Next Due INFLUENZA, SPLIT VIRUS, TRIVALENT W/ PRESERVATIV E IM 06/13/2015 Family History Medical History Relation Comments Bladder Cancer Father Leukemia Maternal Aunt unclear diagnosi s, had treatment Lung cancer Mother Leukemia Niece at t he age of 8 Melanoma Sister treated for zee barbaraa, half sibling Relation Status Comments Father Maternal Aunt Alive Mother Niece Sister Alive Social History Tobacco Use Types Packs/Day Years Used Date Smoking Tobacco: Former Cigarettes Smokeless Tobacco: Former Alcohol Use Standard Drinks/Week Comments Not Currently 1 (1 standard drink = 0.6 oz pur e alcohol) Education Answer Date Recorded Are you interested in more education? Not on neelam e 04/21/2023 Are you concerned about learning? Not on file 04/21/2023 No 04/21/2023 No 04/21/2023 Digital Access Answer Date Recorded No 04/21/2023 No 04/21/2023 Reliable internet access at home? Not on file 04/21/2023 Device with a working camera? Not on file Sex and Gender Information Value Date Recorded Sex Assigned at Male 04/21/2023 11:32 AM EST Legal Sex Male 11:31 AM EST Gender Identity Male 04/21/2023 11:32 AM EST Sexual Orientation Straight 04/21/2023 11 :32 AM EST Last Filed Vital Signs Vital Sign Reading Time Taken Comments Blood Pressure 143/85 05/01/2023 2:41 PM EST Pulse 94 05/01/2023 2:41 PM EST Temperature 36.7 C (98 F) 05/01/2023 2:41 PM EST Respiratory Rate 16 05/01/2023 2:41 PM EST Oxygen Saturation 98% 05/01/2023 2:41 PM EST Inhaled Oxygen Concentration - - Weight 92.9 kg (204 lb 12.9 oz) 05/01/2023 2:41 PM EST Height 184 cm (6' 0.44 ) 05/01/2023 2:41 PM EST Body Mass Index 27.44 05/01/2023 2:41 PM EST Plan of Treatment Upcoming Encounters Date Type Department Care Team (Late st Contact Info) Description 09/01/2025 1:30 PM EDT Telemedicine - audio only [facility], Division of Hematologic Oncology, [facility] [address] [place] [address], [address] [place] [address] Moiz Harrell MD [address] [place] [phone] [email or web address] Health Maintenance Due Date Last Done Comments Adult Td,Tdap Booster 1964 LIPID PANEL 1964 DEPRESSION SCREENING 1976 SMOKING Hx and SMOKELESS TOB ACCO SCREENING 1977 HEPATITIS C SCREENING 1982 HIV ONE-TIME SCREENING (18-6 5 YEARS) 1982 PNEUMOCOCCAL VACCINES (50+ y ears) (1 of 2 - PCV) 1983 ZOSTER VACCINES (1 of 2) 1983 COLOGUARD 2009 COLONOSCOPY 2009 COLORECTAL CANCER SCREENING 2009 FIT TEST 2009 FOBT 2009 SIGMOIDOSCOPY 2009 VIRTUAL COLONOSCOPY 2009 CREATININE LEVEL 05/01/2024 05/01/2023 POTASSIUM LEVEL 05/01/2024 05/01/2023 INFLUENZA VACCINE (#1) 2024 06/13/2015 COVID-19 VACCINE (1 - 2024-2 6 season) 2024 SCREENING FOR DIABETES 05/01/2026 05/01/2023 RSV VACCINE (1 - 1-dose 75+ series) 2039 HEPATITIS A VACCINES Aged Out No long er eligible based on patient's age to complete this topic HIB VACCINES Aged Out No longer eligi ble based on patient's age to complete this topic MENINGOCOCCAL VACCINES (ACWY) Aged Out No longer eligible based on patient's age to complete this topic MENINGOCOCCAL VACCINES (B) Aged Out N o longer eligible based on patient's age to complete this topic Medical Devices Not on file Procedures Procedure Name Priority Date/Time Associated Diagnosis Comments COMPREHENSIVE METABOLIC PANEL Routine 05/01/2023 4:47 PM EST CLL (chronic lymphocytic leukemia) from Last 3 Months or Most Recently Relevant to Health Maintenance Results * (ABNORMAL) Comprehensive metabolic panel (05/01/2023 4:47 PM EST) SODIUM 145 136 - 145 mmol/L [facility] LIC# [id number] POTASSIUM 4.0 3.4 - 5.1 mmol/L [facility] LIC# [id number] CHLORIDE 103 98 - 107 mmol/L [facility] LIC# [id number] CO2 28 22 - 31 mmol/L [facility] LIC# [id number] BUN 29(H) 6 - 23 mg/dL [facility] LIC# [id number] CREATININE 1.18 0.50 - 1.20 mg/dL [facility] LIC# [id number] GLUCOSE 96 70 - 100 mg/dL [facility] LIC# [id number] ALBUMIN 4.5 3.5 - 5.2 g/dL [facility] LIC# [id number] TOTAL PROTEIN 6.8 6.4 - 8.3 g/dL [facility] LIC# [id number] CALCIUM 9.5 8.8 - 10.7 mg/dL [facility] LIC# [id number] ALKALINE PHOSPHATASE 72 40 - 129 U/L [facility] LIC# [id number] TOTAL BILIRUBIN 0.6 0.2 - 1.2 mg/dL [facility] LIC# [id number] AST 41(H) <41 U/L [facility] LIC# [id number] ALT 98(H) <42 U/L [facility] LIC# [id number] GLOBULIN 2.3 2.3 - 4.2 g/dL [facility] LIC# [id number] EGFR 71 >59 mL/min/1.7 3m2 [facility] LIC# [id number] Comment:Estimated glomerular filtration rate calculated using the CKD-EPI refit equation. ANION GAP 14 7 - 17 mmol/L [facility] LIC# [id number] Blood 05/01/2023 4:47 PM EST 05/01/2023 4:51 PM EST us Moiz Harrell MD LAB BLOOD ORDERABLES Final Resul t [facility] LIC# [id number] [address] [place] [id number] from Last 3 Months or Most Recently Relevant to Health Maintenance Insurance [employer] P[employer] P[employer] PLUS PPO [employer] GIC PLUS PPO [employer] PLUS PPO [facility] PLUS PPO Care Teams Manager Treasury Relationship Specialty Start Date End Date Mahesh Ann NP [address] [address] PCP - General Nurse Practitioner 04/21/23 Moiz Harrell MD [address] [place] [phone] [email or web address] Consulting Provider Medical Oncology 05/01/23 Inés Giron CNP [address] [place] [phone] [email or web address] Nurse Practitioner Medical Oncology 05/01/23 Josie Dennis MD [address] [place] [phone] [email or web address] [employer] Primary Oncologist Oncology 05/01/23 Additional Source Comments The information contained in this document represents components of the legal health record. It is not the complete legal health record.[facility]
== END 2025-02-07 14:55 | disposition home or self-care (01) ==
LOC: HO.LAB 14:54
PROVIDERS: PCP Nurse Practitioner Family; Visit Provider Internal Medicine Infectious Disease
DX: T84.51XS Infection and inflammatory reaction due to internal right hip prosthesis, sequela (principal)
CPT/HCPCS: 36415; 85025; 85652; 86140